=== PATIENT | female | born 2000 | race Native Hawaiian/Other Pacific Islander ===

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

== ENCOUNTER 2022-07-27 08:24 | Emergency (ER) | payer OTHER ==
[~2022-07-27] VITALS: Ht 157.5 cm; Wt 108.9 kg
[2022-07-27 08:40] VITALS: TEMP 99.1
[2022-07-27 10:20] VITALS: BP 118/78
== END 2022-07-27 10:20 | disposition home or self-care (01) ==
LOC: ED 08:24
DX: H10.89 Other conjunctivitis (principal); B34.9 Viral infection, unspecified; Z20.822 Contact with and (suspected) exposure to COVID-19
CPT/HCPCS: 87502; 87635; 87651; 99283; U0003

== ENCOUNTER 2022-09-16 15:41 | Emergency (ER) | payer OTHER ==
[~2022-09-16] VITALS: Ht 157.5 cm; Wt 104.3 kg
[2022-09-16 15:48] VITALS: TEMP 99.5
[2022-09-16 19:14] VITALS: BP 118/68
== END 2022-09-16 19:15 | disposition home or self-care (01) ==
LOC: ED 15:41
DX: J06.9 Acute upper respiratory infection, unspecified (principal); R05.8 Other specified cough
CPT/HCPCS: 81025; 99282; J1100